=== PATIENT | male | born 1965 | race Caucasian/White ===

== ENCOUNTER 2020-12-10 08:48 | Outpatient (CLI) | payer BC, SELFPAY ==
--- NOTE | 2020-12-24 13:06 | WPDHOMESLEEP ---
Sleep Study - Home Unattended Date of Study: 12/10/20 Ordering Provider: Hugh Weathers MD Interpreting Provider: Nichole Matamoros MD Home Sleep Study Type: Apnea Link Air Height: 1.88 m Weight: 108.862 kg Body Mass Index: 30.8 Neck Circumference (inches): 16.5 [place]: 7 Reason for Sleep Study Witnessed apneas Sleep History Matthew Ma is a 55 year old man who constantly snores loudly, and others complain about it all the time. He does not awaken at night with heartburn, belching or coughing. He does not awaken from sleep feeling short of breath. His tells him that he stops breathing at night. He does not have trouble sleeping if he has a cold. He does not gasp for breath at night. He constantly has breathing problems at night observed by his . He rarely sweats excessively at night, however never notices his heart pounding or beating irregularly at night. He does not fall asleep during the day, does not fall asleep involuntarily or while driving. He does not have loss of muscle tone with strong emotion. He does not have daytime difficulties due to excessive sleepiness. 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 He does not feel paralyzed on waking or falling asleep. He does not have vivid dreamlike scenes upon awakening or falling asleep. He does not feel afraid to go to sleep. He does not have nightmares. He frequently remembers his dreams. He occasionally has racing thoughts. He does not feel sad or depressed. He frequently has anxiety. He occasionally has muscular tension. He does not notice parts of his body jerking, does not kick at night does not have crawling or aching feelings in his legs at night. He does not have any leg pain at night. He occasionally has morning jaw pain and frequently grinds his teeth at night. He is not bothered by pain during the day, is not awakened by pain at night, does not wake up feeling stiff in the morning with sore achy muscles but occasionally has pain in the neck and spine. He has fatigue. There is a family history of sleep issues in his father and son. Normal bedtime is 10 to 10:30 p.m. falling asleep within 5-10 minutes, waking 1 or 2 times at night, returning to sleep within 5-10 minutes although, at times he remains awake for 2-3 hours. He does not mention whether or not he goes to the bathroom at night. He wakes in the morning at 5:45 a.m.. On the weekends he may stay awake until 10 30 or 11:00 p.m. and wakes at 7 in the morning. He does not usually take naps. A short nap may be refreshing. He feels better in the morning compared to other times a day. He frequently awakens feeling refreshed but he frequently also has daytime sleepiness. He rarely has a morning headache. Habits: Never smoked tobacco. Caffeine 1-2 sodas a day. No alcohol or recreational drugs. FOR[facility]LY [facility], [facility] Past Medical History Medical History BMI 31.0-31.9,adult Family History Family History (Updated 12/24/20 @ 13:12 by Nichole Matamoros MD) Father Sleep apnea Son Sleep apnea Social History Social History Smoking status: Never smoker Alcohol intake: current Sleep Procedure This test was performed using 4 channel monitoring including respiratory effort channel, snoring channel, heart rate channel, and oxygen saturation channel. This study was scored using CMS guidelines. Sleep Architecture Not applicable for home sleep test. Respiratory Analysis The duration of the study is 8 hours 16 minutes. Duration of the evaluation time is 8 hours 4 minutes. The apnea-hypopnea index is 25. He had 80 apneas. He had 27 obstructive apneas, 34% of the total, 52 central apneas which is 65% of the total and 1 mixed apnea, 1% of the total. He had 121 hypopneas. Oximetry Data The oxygen desaturation index is 21. The lowest desaturation is 86%. He had 170 desaturations of 4% or more and spent 1 min
[2020-12-24 13:23] VITALS: BMI 30.8
== END 2020-12-10 08:49 | disposition home or self-care (01) ==
LOC: ANHCSM 08:49
PROVIDERS: PCP Family Medicine; Visit Provider Family Medicine
DX: G47.33 Obstructive sleep apnea (adult) (pediatric) (principal)
CPT/HCPCS: 95806

== ENCOUNTER → 2021-02-15 02:34 | Outpatient (CLI) | payer BC, SELFPAY ==
[2021-02-15 19:11] LABS: SARS-CoV-2 RNA PCR Negative
== END ==
PROVIDERS: PCP Family Medicine; Visit Provider Internal Medicine Critical Care Medicine
DX: Z01.812 Encounter for preprocedural laboratory examination (principal); Z20.822 Contact with and (suspected) exposure to COVID-19
CPT/HCPCS: C9803; U0003; U0005

== ENCOUNTER 2021-02-18 08:48 | Outpatient (CLI) | payer BC, SELFPAY ==
--- NOTE | 2021-03-01 12:11 | WPDSLEEPSTUD ---
Sleep Study Date of Study: 02/18/21 Ordering Provider: Hugh Weathers MD Interpreting Physician: Nichole Matamoros MD Sleep Study Type: CPAP Titration Height: 1.88 m Weight: 111.13 kg Body Mass Index: 31.4 Neck Circumference (inches): 17.5 [place]: 9 Reason for Sleep Study Home Sleep Test December 10, 2020 AHI is 25 65% central apneas desaturation 86%, patient now presents for CPAP titration Sleep History Matthew Ma is a 55 year old man who constantly snores loudly, and others complain about it all the time. He does not awaken at night with heartburn, belching or coughing. He does not awaken from sleep feeling short of breath. His tells him that he stops breathing at night. He does not have trouble sleeping if he has a cold. He does not gasp for breath at night. He constantly has breathing problems at night observed by his . He rarely sweats excessively at night, however never notices his heart pounding or beating irregularly at night. He does not fall asleep during the day, does not fall asleep involuntarily or while driving. He does not have loss of muscle tone with strong emotion. He does not have daytime difficulties due to excessive sleepiness. 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 He does not feel paralyzed on waking or falling asleep. He does not have vivid dreamlike scenes upon awakening or falling asleep. He does not feel afraid to go to sleep. He does not have nightmares. He frequently remembers his dreams. He occasionally has racing thoughts. He does not feel sad or depressed. He frequently has anxiety. He occasionally has muscular tension. He does not notice parts of his body jerking, does not kick at night does not have crawling or aching feelings in his legs at night. He does not have any leg pain at night. He occasionally has morning jaw pain and frequently grinds his teeth at night. He is not bothered by pain during the day, is not awakened by pain at night, does not wake up feeling stiff in the morning with sore achy muscles but occasionally has pain in the neck and spine. He has fatigue. There is a family history of sleep issues in his father and son. Normal bedtime is 10 to 10:30 p.m. falling asleep within 5-10 minutes, waking 1 or 2 times at night, returning to sleep within 5-10 minutes although, at times he remains awake for 2-3 hours. He does not mention whether or not he goes to the bathroom at night. He wakes in the morning at 5:45 a.m.. On the weekends he may stay awake until 10 30 or 11:00 p.m. and wakes at 7 in the morning. He does not usually take naps. A short nap may be refreshing. He feels better in the morning compared to other times a day. He frequently awakens feeling refreshed but he frequently also has daytime sleepiness. He rarely has a morning headache. Habits: Never smoked tobacco. Caffeine 1-2 sodas a day. No alcohol or recreational drugs. [facility] Past Medical History Medical History (Updated 03/01/21 @ 12:16 by Nichole Matamoros MD) BMI 31.0-31.9,adult Mixed hyperlipidemia Obstructive sleep apnea (~11/2020) Family History Family History Father Sleep apnea Son Sleep apnea Social History Social History Smoking status: Never smoker Alcohol intake: current Sleep Procedure This test was performed using the Spectafy multiple channel system including EOG, EEG, submental EMG, EKG, nasal and oral airflow using thermistors and nasal pressure sensors, chest and abdominal belts for body position data, and pulse oximetry. Video monitoring was also performed. The study was scored using CMS guidelines. The patient was started on CPAP using a medium AirFit F 20 full face mask and heated humidifier with pressures attempted including 5 cm, 6 cm, 8 cm, 10 cm, 12 cm, 14 cm, and 16 cm. Central apneas were a small portion of the entire study. This suggests that the home sleep
[2021-03-01 12:15] VITALS: BMI 31.4
== END 2021-02-18 08:49 | disposition home or self-care (01) ==
LOC: ANHCSM 08:49
PROVIDERS: PCP Family Medicine; Visit Provider Family Medicine
DX: G47.31 Primary central sleep apnea (principal); G47.33 Obstructive sleep apnea (adult) (pediatric)
CPT/HCPCS: 95811

== ENCOUNTER 2024-05-20 11:58 | Emergency (ER) | payer BC, SELFPAY ==
--- NOTE | ~2024-05-20 | XR_ITS ---
EXAMINATION: XR ankle RT min 3V DATE: 05/20/2024 12:26 INDICATION: Right ankle pain. TECHNIQUE: 4 views of right ankle were obtained. COMPARISON: None. FINDINGS: Bone alignment is normal. No fracture. There is heterotopic ossification distal to medial m alleolus. There is mild osteoarthritis of the ankle joint and some of the midfoot joints. There are e nthesophytes at the posterior and plantar aspects of calcaneal tuberosity. There is ankle soft tissue swelling. IMPRESSION: 1. 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 Acute avulsion fracture can not be excluded. 2. Mild polyarticular osteoarthritis. Reviewed, dictated and finalized at location A. IMPRESSION: 1. 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 Acute avulsion fracture cannot be excluded. 2. Mild polyarticular osteoarthritis.
[2024-05-20 12:08] VITALS: BP 149/97; PULSE 73; RESP 16; TEMP 36.2; O2SAT 99
--- NOTE | 2024-05-20 12:17 | ED.EXTPRO ---
HPI - Extremity Problem General Chief complaint: Extremity Problem,Nontraumatic Stated complaint: R ANKLE INJURY Time Seen by Provider: 05/20/24 12:01 Source: patient Mode of arrival: ambulatory Limitations: no limitations History of Present Illness HPI Narrative: Matthew is a 59-year-old male presents the clinic today with complaints right ankle pain x1 day. He denies any fall or trauma to the ankle. He has taking ibuprofen for pain and using his 's walking boot to ambulate. He states the pain was severe this morning when he woke up but has improved slightly since then. Related Data Home Medications Medication Instructions Recorded Confirmed No Home Medications 05/20/24 05/20/24 Allergies Allergy/AdvReac Type Severity Reaction Status Date / Time Penicillins Allergy Unknown Unknown Verified 05/20/24 12:06 Review of Systems Review of Systems: Pertinent positives per HPI. Patient denies any fever, chills, rash, headache, visual changes, dizziness, cough, runny nose, sore throat, shortness of breath, chest pain, palpitations, nausea, vomiting, diarrhea, constipation, abdominal pain, or any urinary issues. PMFSH Past Medical History Medical History BMI 31.0-31.9,adult BMI 32.0-32.9,adult Mixed hyperlipidemia Obstructive sleep apnea (~11/2020) Venomous spider bite Family History Family History Father Sleep apnea Son Sleep apnea Social History Social History Smoking status: Never smoker Alcohol intake: current Substance use: never Lack of Transportation: No Lack of Food: Never True Current Housing: I Have Housing Concerned About Future Housing: No Difficulty Paying Gas/Electric Bills: No Difficulty Paying for Meds: No Currently Unemployed: No Education: Trade/Vocational Certificate Difficulty w/ Childcare or Family Care: No Living arrangements: with family Comments At the time of my signature, I reviewed and agree with the nursing past medical, surgical, social, and family history. There is no relevant family history pertinent to the patient complaint. Exam Narrative: General: Well-developed, well nourished, in no apparent distress Musculoskeletal: No deformity, right dorsal ankle tenderness to palpation, grossly normal range of motion, muscle strength strong and equal, peripheral pulse strong, no edema, no cyanosis, normal gait and station Integumentary: [place], warm, and dry, intact without lesion, no ecchymosis, open wounds, or rashes. Course Course Emergency Course: Portions of this record may have been created with voice recognition software. Level of Care: Express Care Visit Vital Signs Vital signs: Vital Signs Temperature 36.2 C L 05/20/24 12:08 Pulse Rate 73 05/20/24 12:08 Respiratory Rate 16 05/20/24 12:08 Blood Pressure 149/97 H 05/20/24 12:08 Pulse Oximetry 99 05/20/24 12:08 Temperature 36.2 C L 05/20/24 12:08 Pulse Rate 73 05/20/24 12:08 Respiratory Rate 16 05/20/24 12:08 Blood Pressure 149/97 H 05/20/24 12:08 Pulse Oximetry 99 05/20/24 12:08 Vital signs reviewed MDM - Extremity (Nontraumatic) MDM Narrative Medical decision making narrative: At the time of visit patient is resting comfortably on the exam table. Patient appears to be nontoxic. Diagnostics: Negative for acute fracture or malalignment. Showed mild polyarticular osteoarthritis. Plan: I suspect patient has acute ankle pain possibly due to ligament or tendon inflammation. X-ray results reviewed with patient. Supportive measures were discussed with the patient and they voiced understanding discharge instructions and agrees to treatment plan. Return precautions reviewed Differential Diagnosis Differential diagnosis: Likely herpes zoster, gout and other (Ankle fra
== END 2024-05-20 12:50 | disposition home or self-care (01) ==
PROVIDERS: Emergency Provider Nurse Practitioner Family; PCP Family Medicine
DX: M25.571 Pain in right ankle and joints of right foot (principal); E78.2 Mixed hyperlipidemia
CPT/HCPCS: 73610; 99213; G0463